=== PATIENT | male | born 1935 | race Caucasian/White ===

== ENCOUNTER 2023-02-09 09:05 | Day surgery (SDC) | payer MEDICARE, OTHER ==
[2023-02-09] MEDS ORDERED: BUPIVACAINE 0.5% VIAL IJ ONE (09:06)
[2023-02-09] MEDS ORDERED: Depo-Medrol 40 MG/ML IM ONE (09:06)
[2023-02-09] MEDS ORDERED: DIPRIVAN 200 MG/20 ML IV ONE (10:52)
--- NOTE | 2023-02-09 12:00 | XRAY ---
20 seconds of fluoroscopy was used in surgery for a bilateral sacroiliac joint injection.
--- NOTE | 2023-02-09 12:02 | XRAY ---
Indication: Bilateral SI joint injection. Intraoperative fluoroscopy provided for 20 seconds. 4 digital spot images submitted for interpretation demonstrates posterior needle tip projecting over the left and right SI joint. Correlate with intraoperative findings/report.
[2023-02-09] MEDS ORDERED: Lactated Ringers 1,000 ML IV ONE (12:09)
[2023-02-09 13:44] LABS: ALKALINE PHOSPHATASE 86 U/L (38-126); BLOOD UREA NITROGEN 30 mg/dL (9-20); CHLORIDE 100 mmol/L (98-107); Calcium 8.8 mg/dL (8.4-10.2); Carbon Dioxide 32 mmol/L (22-30); Creatinine 1 0.67 mg/dL (0.66-1.25); EST GLOMERULAR FILTRATION RATE > 60.0 ML/MIN; Glucose 111 mg/dL (74-106); Potassium 3.9 mmol/L (3.5-5.1); SGOT/AST 31 U/L (17-59); SGPT/ALT 18 U/L (0-50); SODIUM 139 mmol/L (137-145); Total Protein 7.1 g/dL (6.3-8.2)
== END 2023-02-09 11:30 | disposition home or self-care (01) ==
LOC: SDC-PAIN 09:05
PROVIDERS: ATTEND Psychiatry & Neurology Pain Medicine
DX: M46.1 Sacroiliitis, not elsewhere classified (principal); Z79.899 Other long term (current) drug therapy
CPT/HCPCS: 01992; 27096; 36415; 72202; 77002; 80053; 99100; G0260; J1030; J2704

== ENCOUNTER 2023-03-09 08:08 | Day surgery (SDC) | payer MEDICARE, OTHER ==
[2023-03-09] MEDS ORDERED: Depo-Medrol 40 MG/ML IM ONE (08:09)
[2023-03-09] MEDS ORDERED: LIDOCAINE HCL 1% 50 MG/5 ML VL PF IJ ONE (08:09)
[2023-03-09] MEDS ORDERED: Sodium Chloride 0.9(Preservative Free) 10 ML IJ ONE (08:09)
[2023-03-09] MEDS ORDERED: DIPRIVAN 200 MG/20 ML IV ONE (10:06)
--- NOTE | 2023-03-09 11:21 | XRAY ---
Indication: Lumbar ZUHAIR. Intraoperative fluoroscopy provided for 21 seconds. 2 digital spot image submitted for interpretation demonstrates posterior needle tip projecting just posterior to last lumbar segment. Small amount of contrast injected for needle tip placement. Correlate with intraoperative findings/report.
[2023-03-09] MEDS ORDERED: Lactated Ringers 1,000 ML IV ONE (11:42)
--- NOTE | 2023-03-09 12:22 | XRAY ---
21 seconds of fluoroscopy was used in surgery for a lumbar ZUHAIR.
== END 2023-03-09 10:45 | disposition home or self-care (01) ==
LOC: SDC-PAIN 08:08
PROVIDERS: ATTEND Psychiatry & Neurology Pain Medicine
DX: M54.16 Radiculopathy, lumbar region (principal); Z79.899 Other long term (current) drug therapy
CPT/HCPCS: 62323; 72100; 77003; J1030; J2001; J2704; Q9966

== ENCOUNTER 2023-05-11 10:37 | Day surgery (SDC) | payer MEDICARE, OTHER ==
[2023-05-11] MEDS ORDERED: Depo-Medrol 40 MG/ML IM ONE (10:38)
[2023-05-11] MEDS ORDERED: Sodium Chloride 0.9(Preservative Free) 10 ML IJ ONE (10:38)
[2023-05-11] MEDS ORDERED: DIPRIVAN 200 MG/20 ML IV ONE (12:09)
[2023-05-11] MEDS ORDERED: PROVENTIL 2.5 MG/3 ML NEB IH ONE ×2 (12:30)
--- NOTE | 2023-05-11 12:56 | XRAY ---
Indication: Left L4-S1 transforaminal ZUHAIR. Intraoperative fluoroscopy provided for 22 seconds. 4 digital spot image submitted for interpretation demonstrates posterior needle tips projecting over the expected left L4 and L5 nerve roots. Small amount of contrast injected for needle tip placement. Correlate with intraoperative findings/report.
--- NOTE | 2023-05-11 13:29 | XRAY ---
Indication: Aspiration. Comparison: July 05, 2022 Portable chest inflated with new small right costophrenic angle calcified granuloma. No focal infiltrate, consolidation, or large effusion. Heart not enlarged. Bony thorax intact again with osteopenia and mild degenerative changes. Impression: Nonacute chest with chronic features.
--- NOTE | 2023-05-11 13:38 | XRAY ---
22 seconds of fluoroscopy was use in surgery for a left L4-S1 transforaminal ZUHAIR.
[2023-05-11] MEDS ORDERED: Lactated Ringers 1,000 ML IV ONE (16:04)
== END 2023-05-11 12:50 | disposition home or self-care (01) ==
LOC: SDC-PAIN 10:37
PROVIDERS: ATTEND Psychiatry & Neurology Pain Medicine
DX: M54.16 Radiculopathy, lumbar region (principal); Z79.899 Other long term (current) drug therapy
CPT/HCPCS: 64483; 64484; 71045; 72100; 77003; 94640; J1030; J2704; J7609; Q9966; A9270-GY

== ENCOUNTER 2024-06-11 23:15 | Emergency (ER) | payer MEDICARE, OTHER ==
--- NOTE | 2024-06-11 23:22 | ERPHSYRPT ---
- History of Present Illness Time Seen by Provider: 06/11/24 23:21 Source: patient, EMS, old records Exam Limitations: no limitations Physician History: This is an 88-year-old white male patient whose primary care provider is Dr. Torrez, residence life director Dr. Thomas and pain specialist Dr. Hahn and presents to the emergency department transported by the paramedics secondary to concerns of this patient having weakness, fever and confusion. Patient has complaints of headache and bodyaches. On arrival to our emergency department patient does not appear to be confused. He does have a low-grade fever 99.9 F. He denies chest pain. He denies shortness of breath. He denies abdominal pain. He denies nausea vomiting or diarrhea. Patient does have a history of hyperlipidemia, hypertension and osteoarthritis. Timing/Duration: today Severity: mild Modifying Factors: Improves With: nothing Associated Symptoms: fever, headaches, weakness, No nausea, No vomiting, No abdominal pain, No shortness of breath, No chest pain Allergies/Adverse Reactions: rosuvastatin [From Crestor] Allergy (Verified 06/11/24 23:19) tape Allergy (Uncoded 06/11/24 23:19) Travel Risk - International Travel Have you traveled outside of the country in past 3 weeks: No - Emerging Infectious Disease Are you exhibiting symptoms associated with any current EIDs: Yes Symptoms: Fever, Headaches/Body Aches/ - Review of Systems Constitutional: Fever, Weakness Eyes: No Symptoms Ears, Nose, & Throat: No Symptoms Respiratory: No Symptoms Cardiac: No Symptoms Abdominal/Gastrointestinal: No Symptoms Genitourinary Symptoms: No Symptoms Musculoskeletal: Arthralgias, Myalgias Neurological: No Symptoms, Headache Psychological: No Symptoms Endocrine: No Symptoms Hematologic/Lymphatic: No Symptoms Immunological/Allergic: No Symptoms All Other Systems: Reviewed and Negative - Past Medical History Neurological History: No Pertinent History Cardiac History: No Pertinent History, High Cholesterol, Hypertension Respiratory History: No Pertinent History Endocrine Medical History: No Pertinent History Musculoskeletal History: Osteoarthritis Other Medical History: 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 - Nursing Vital Signs Nursing Vital Signs: Initial Vital Signs Temperature 99.9 F 06/11/24 23:17 Pulse Rate 100 H 06/11/24 23:17 Respiratory Rate 14 06/11/24 23:17 Blood Pressure 165/70 06/11/24 23:17 O2 Sat by Pulse Oximetry 95 06/11/24 23:17 Pain Scale Pain Intensity 5 - Physical Exam General Appearance: no apparent distress, alert, anxiety Eye Exam: PERRL/EOMI, eyes nml inspection Ears, Nose, Throat Exam: normal ENT inspection, moist mucous membranes Neck Exam: normal inspection, non-tender, supple, full range of motion Respiratory Exam: normal breath sounds, lungs clear, airway intact, No chest tenderness, No respiratory distress Cardiovascular Exam: regular rate/rhythm, normal heart sounds, normal peripheral pulses Gastrointestinal/Abdomen Exam: soft, normal bowel sounds, No tenderness Rectal Exam: deferred Back Exam: normal inspection, normal range of motion, No CVA tenderness Extremity Exam: normal inspection, normal range of motion, pelvis stable Neurologic Exam: alert, oriented x 3, cooperative, mural artist II-XII nml as tested, sensation nml Skin Exam: normal color, warm, dry Lymphatic Exam: No adenopathy SpO2 Interpretation: normal O2 Delivery: Room Air - Course Nursing assessment & vital signs reviewed: Yes Ordered Tests: Active Orders 24 hr Category Date Time Status EKG-ER Only STAT Care 06/11/24 23:32 Active IV Insertion STAT Care 06/11/24 23:32 Active Pulse Oximetry (ED) STAT Care 06/11/24 23:32 Active CHEST 1 VIEW (PORTABLE) Stat Exams 06/11/24 23:33 Taken HEAD WITHOUT CONTRAST [CT] Stat Exams 06/11/24 23:33 Taken BLOOD CULTURE Stat Lab 06/11/24 00:55 Received CBC W DIFF Stat Lab 06/11/24 23:55 Completed CMP Stat Lab 06/11/24 23:55 Completed Lactic Acid Stat Lab 06/11/24 23:57 Completed MONO SCREEN Stat Lab 06/11/24 23:55 Completed UA W/RFX UR CULTURE Stat Lab 06/11/24 23:33 Received Medication Summary Generic Name Dose Route Start Last Admin Trade Name Freq PRN Reason Stop Dose Admin Sodium Chloride 1,000 mls @ 50 mls/hr 06/11/24 23:45 06/12/24 00:29 Sodium Chloride 0.9% 1000 Ml IV 07/11/24 23:44 50 mls/hr .Q20H COOKIE Administration Discontinued Medications Generic Name Dose Route Start Last Admin Trade Name Freq PRN Reason Stop Dose Admin Acetaminophen 650 mg 06/11/24 23:32 07/16/24 00:29 Acetaminophen 325 Mg Tablet PO 06/11/24 23:33 650 mg STAT STA Administration Acetaminophen Confirm 06/12/24 00:19 Acetaminophen 325 Mg Tablet Administered 06/12/24 00:20 Dose 650 mg .ROUTE .[facility] Lab/Rad Data: Laboratory Result Diagrams 06/11/24 23:55 06/11/24 23:55 Laboratory Results 06/11/24 06/11/24 06/11/24 Range/Units 23:57 23:55 23:55 WBC (4.23-9.07) x10^3/uL RBC (4.63-6.08) x10^6/uL Hgb (13.7-17.5) g/dL Hct (40.1-51.0) % MCV (79.0-92.2) fL MCH (25.7-32.2) pg MCHC (32.3-36.5) g/dL RDW (11.6-14.4) % Plt Count (163-337) x10^3/uL MPV (9.4-12.4) fL Gran % (34.0-67.9) % Immature Gran % (Auto) (0.001-0.429) % Nucleat RBC Rel Count (0.00-0.2) % Eos # (Auto) (0.04-0.54) x10^3/uL Immature Gran # (Auto) (0.001-0.031) x10^3u/L Absolute Lymphs (auto) (1.32-3.57) x10^3/uL Absolute Monos (auto) (0.30-0.82) x10^3/uL Absolute Nucleated RBC (0.00-0.012) x10^3u/L Lymphocytes % (21.8-53.1) % Monocytes % (5.3-12.2) % Eosinophils % (0.8-7.0) % Basophils % (0.2-1.2) % Absolute Granulocytes (1.78-5.38) x10^3/uL Basophils # (0.01-0.08) x10^3/uL Sodium (135-145) mmol/L Potassium (3.5-5.1) mmol/L Chloride (98-107) mmol/L Carbon Dioxide (22-30) mmol/L Anion Gap (5-15) MEQ/L BUN (9-20) mg/dL Creatinine (0.66-1.25) mg/dL Estimated GFR ML/MIN Glucose (74-106) mg/dL Lactic Acid 1.3 (0.4-2.0) Calcium (8.4-10.2) mg/dL Total Bilirubin (0.2-1.3) mg/dL AST (17-59) U/L ALT (0-50) U/L Alkaline Phosphatase (38-126) U/L Serum Total Protein (6.3-8.2) g/dL Albumin (3.5-5.0) g/dL Monoscreen NEGATIVE (NEGATIVE) Influenza Type A Ag NEGATIVE (NEGATIVE) Influenza Type B Ag NEGATIVE (NEGATIVE) RSV (PCR) NEGATIVE (NEGATIVE) SARS-CoV-2 (PCR) POSITIVE A (NEGATIVE) Group A Strep Antibody (NEGATIVE) 06/11/24 06/11/24 06/11/24 Range/Units 23:55 23:55 23:55 WBC 8.9 (4.23-9.07) x10^3/uL RBC 3.70 L (4.63-6.08) x10^6/uL Hgb 11.6 L (13.7-17.5) g/dL Hct 35.4 L (40.1-51.0) % MCV 95.7 H (79.0-92.2) fL MCH 31.4 (25.7-32.2) pg MCHC 32.8 (32.3-36.5) g/dL RDW 11.8 (11.6-14.4) % Plt Count 247 (163-337) x10^3/uL MPV 9.6 (9.4-12.4) fL Gran % 79.3 H (34.0-67.9) % Immature Gran % (Auto) 0.3 (0.001-0.429) % Nucleat RBC Rel Count 0.0 (0.00-0.2) % Eos # (Auto) 0.12 (0.04-0.54) x10^3/uL Immature Gran # (Auto) 0.03 (0.001-0.031) x10^3u/L Absolute Lymphs (auto) 0.53 L (1.32-3.57) x10^3/uL Absolute Monos (auto) 1.16 H (0.30-0.82) x10^3/uL Absolute Nucleated RBC 0.00 (0.00-0.012) x10^3u/L Lymphocytes % 5.9 L (21.8-53.1) % Monocytes % 13.0 H (5.3-12.2) % Eosinophils % 1.3 (0.8-7.0) % Basophils % 0.2 (0.2-1.2) % Absolute Granulocytes 7.05 H (1.78-5.38) x10^3/uL Basophils # 0.02 (0.01-0.08) x10^3/uL Sodium 132 L (135-145) mmol/L Potassium 4.1 (3.5-5.1) mmol/L Chloride 100 (98-107) mmol/L Carbon Dioxide 26 (22-30) mmol/L Anion Gap 10.3 (5-15) MEQ/L BUN 31 H (9-20) mg/dL Creatinine 0.83 (0.66-1.25) mg/dL Estimated GFR 83.7 ML/MIN Glucose 132 H (74-106) mg/dL Lactic Acid (0.4-2.0) Calcium 8.9 (8.4-10.2) mg/dL Total Bilirubin 0.60 (0.2-1.3) mg/dL AST 24 (17-59) U/L ALT 20 (0-50) U/L Alkaline Phosphatase 57 (38-126) U/L Serum Total Protein 5.9 L (6.3-8.2) g/dL Albumin 3.5 (3.5-5.0) g/dL Monoscreen (NEGATIVE) Influenza Type A Ag (NEGATIVE) Influenza Type B Ag (NEGATIVE) RSV (PCR) (NEGATIVE) SARS-CoV-2 (PCR) (NEGATIVE) Group A Strep Antibody NOT DETECTED (NEGATIVE) - Progress Progress: improved, re-examined Progress Note: 06/12/24 00:11 My medical decision making and the assignment of moderate complexity to this patient's medical issue today is based on review of the patient's past medical history, review of the patient's medication list, review the patient drug allergy list, history present illness and physical findings on examination. The workup in this patient includes placement of intravenous line, infusion of low rate normal saline solution, urinalysis, ammonia level, viral swabs, monotest, chest x-ray, CT scan of head without contrast. 06/12/24 00:12 Differential diagnosis includes but is not limited to urinary tract infection, pneumonia, viral illness, strep pharyngitis, acute intracranial abnormality. 06/12/24 01:17 I interpreted the patient's laboratory data results. The patient tested positive for COVID-19 infection. There are no other acute, emergent medical issues. I interpreted the preliminary chest x-ray report. Patient has bilateral groundglass appearing opacities. The patient's symptoms started within the last 24 hours. I am not convinced that this patient requires Paxlovid or would benefit from it. His symptoms are mild. Although 88 years of age, he is otherwise healthy. I will have the patient contact his primary care provider today, 06/12/2024 to see if they want to start the Paxlovid medication. Counseled pt/family regarding: lab results, diagnosis, need for follow-up, rad results Medical Desision Making - Independent Historian Additional History obtained from: Spouse, Family - Diagnostic Testing Diagnostic test were ordered, analyzed, and reviewed by me: Yes Radiological Interpretation: Interpreted by me - Risk of complications Low Risk: Low risk of morbidity from additional dx testing or treatment - Departure Departure Disposition: Home Clinical Impression: COVID-19 virus infection Condition: Stable Critical Care Time: No Referrals: VITALY TORREZ OYSTER UNLOADER [Primary Care Provider] - Follow up/PCP as directed Additional Instructions: Drink plenty of fluids. Take your medications as prescribed. Call your primary care provider today, 06/12/2024 to discuss the risk, benefits and alternatives to using Paxlovid. Have them decide if you would benefit from this medication.
[2024-06-11 23:28] VITALS: TEMP 99.9
[2024-06-12 00:11] LABS: Absolute Neutrophil Ct (ANC) 7.05 x10^3/uL (1.78-5.38); BASOPHIL % 0.2 % (0.2-1.2); Basophil (Absolute #) 0.02 x10^3/uL (0.01-0.08); Eosinophil % 1.3 % (0.8-7.0); Eosinophil (Absolute #) 0.12 x10^3/uL (0.04-0.54); Hematocrit 35.4 % (40.1-51.0); Hemoglobin 11.6 g/dL (13.7-17.5); IMMATURE GRAN # 0.03 x10^3u/L (0.001-0.031); IMMATURE GRAN % 0.3 % (0.001-0.429); Lymphocyte (Absolute #) 0.53 x10^3/uL (1.32-3.57); Lymphocytes % 5.9 % (21.8-53.1); Mean Cell Volume 95.7 fL (79.0-92.2); Mean Corpuscular Hemoglobin 31.4 pg (25.7-32.2); Mean Corpuscular Hgb Concent. 32.8 g/dL (32.3-36.5); Mean Platelet Volume 9.6 fL (9.4-12.4); Monocyte (Absolute #) 1.16 x10^3/uL (0.30-0.82); Neutrophil % 79.3 % (34.0-67.9); Platelet Count 247 x10^3/uL (163-337); Red Cell Distribution Width 11.8 % (11.6-14.4); White Blood Count 8.9 x10^3/uL (4.23-9.07)
[2024-06-12] MEDS ORDERED: Sodium Chloride 0.9% 1000 ML 1,000 ML ONE (00:19)
[2024-06-12] MEDS ORDERED: TYLENOL 325 MG ONE (00:19)
[2024-06-12 00:26] LABS: ALBUMIN 3.5 g/dL (3.5-5.0); ANION GAP 10.3 MEQ/L (5-15); BILIRUBIN,TOTAL 0.6 mg/dL (0.2-1.3); Calcium 8.9 mg/dL (8.4-10.2); Creatinine 1 0.83 mg/dL (0.66-1.25); EST GLOMERULAR FILTRATION RATE 83.7 ML/MIN; Potassium 4.1 mmol/L (3.5-5.1); Total Protein 5.9 g/dL (6.3-8.2)
[2024-06-12] MEDS: Sodium Chloride 0.9% 1000 ML 1,000 ML IV SCH (00:29)
[2024-06-12] MEDS: TYLENOL 325 MG PO STA (00:29)
[2024-06-12 00:56] LABS: INFLUENZA A NEGATIVE (NEGATIVE); INFLUENZA B NEGATIVE (NEGATIVE); RESPIRATORY SYNCTIAL VIRUS NEGATIVE (NEGATIVE)
[2024-06-12 00:58] LABS: SARS-CoV-2 Xpert Express POSITIVE (NEGATIVE)
[2024-06-12 01:12] VITALS: BP 137/57; PULSE 97; RESP 14; O2SAT 94
[2024-06-12 01:23] LABS: Appearance Clear (Clear); Bacteria None Seen /HPF (None Seen); Bilirubin Negative (Negative); Blood Negative (Negative); Epithelial Cells None Seen /HPF (None Seen); Glucose, Urine Negative (Negative); Hyaline Casts NONE SEEN /LPF (0-2); Ketones Negative (Negative); Leukocyte Esterase Negative (Negative); Nitrite Negative (Negative); Ph 6.5 (4.6-8.0); Protein,Urine Dip Negative (Negative); WBC 0-2 /HPF (0-5)
[2024-06-12 01:24] LABS: ADD URINE CULTURE? NO (NO)
[2024-06-12 01:25] LABS: Slide Review 1 YES
--- NOTE | 2024-06-12 01:25 | XRAY ---
CLINICAL HISTORY: Confusion COMPARISON: None. TECHNIQUE: Axial noncontrast CT scan of the brain was performed from the skull base to the high parietal region. One of the following dose-reduction techniques was utilized for this exam. Automated exposure control, adjustment of the mA and/or kV according to patient size, and use of iterative reconstruction. CTDI: 53.92 mGy, DLP: 1016.25 mGy-cm. FINDINGS: Suboptimal scan due to metal artifacts. Ill-defined [id number] areas were noted in the subcortical/periventricular white matter bilaterally, suggestive of microvascular ischemic changes. 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 The ventricular system, cortical sulci, and basal cisterns are prominent and consistent with senile changes. The visualized brain parenchyma shows a normal appearance. Vanessa-white matter differentiation is maintained. No midline shifts or deformity. No intracerebral or extra axial hematoma. Normal size and configuration of the cerebral ventricles. Normal CT appearance of the posterior fossa structures namely the cerebellar hemispheres, brainstem, and cerebellar peduncles. The IACs are unremarkable. The cerebello-pontine angles are clear. The pituitary gland, the pineal gland, and the optic chiasm are unremarkable. The osseous structures in the skull base are unremarkable. No definite calvarium fractures. The scanned paranasal sinuses are clear. IMPRESSION: 1. 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 2. 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 3. The rest of the non-enhanced CT study for the brain is unremarkable. 4. Advised MRI with MRA if clinically required. Electronically Signed by: Jed Cain MD. (06/12/2024 01:20:04 EDT)
--- NOTE | 2024-06-12 08:47 | XRAY ---
Indication: Fever. Comparison: May 11, 2023 Portable chest demonstrates new left lung base infiltrate/atelectasis. Remaining heart and right lung unremarkable. Bony thorax intact again with osteopenia and mild degenerative changes.
== END 2024-06-12 01:38 | disposition home or self-care (01) ==
LOC: ED 23:15
DX: U07.1 COVID-19 (principal); R50.9 Fever, unspecified; R53.1 Weakness; E78.5 Hyperlipidemia, unspecified; I10 Essential (primary) hypertension
CPT/HCPCS: 0241U; 36000; 36415; 70450; 71045; 80053; 81001; 83605; 85025; 86308; 87040; 87651; 93005; 94760; 99284; A9270-GY